=== PATIENT | female | born 1980 | race Caucasian/White ===

== ENCOUNTER 2021-07-19 23:11 | Emergency (ER) | payer BC ==
[2021-07-19] MEDS ORDERED: Cyclobenzaprine 10 MG Tab PO ONE (23:28)
[2021-07-19] MEDS ORDERED: Acetaminophen/HYDROcodone 325-10 MG Tab PO ONE (23:28)
--- NOTE | 2021-07-19 23:38 | EDM.PDOC ---
ED HPI GENERAL MEDICAL PROBLEM - General Chief Complaint: General Stated Complaint: Left back pain Time Seen by Provider: 07/19/21 23:28 Source of Information: Reports: Patient, Significant Other History Limitations: Reports: No Limitations - History of Present Illness INITIAL COMMENTS - FREE TEXT/NARRATIVE: Patient presents with low back pain on left that radiates down the pos terolateral left hip and thigh. No numbness, tingling, or weakness. This has been going on for at least a month but worse recently, says she can't stand it anymore. It is worse with sitting or lifting. Better with walking or lying flat. She has had chronic back pain in this area since a fall last winter. She had an injection a month ago that sounds like probably a trochanteric bursa injection. Patient says the pain is worse since then. She takes Diclofenac twice daily for chronic management. She is scheduled for MRI of back and hip next week. 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 Next shift is in two days. No recent injury. She asks if I will give her work release until MRI next week. Left Posterior Back Pain Score (Numeric/FACES): 10 - Related Data Allergies Allergy/AdvReac Type Severity Reaction Status Date / Time No Known Allergies Allergy Verified 07/19/21 23:23 ED ROS GENERAL - Review of Systems Review Of Systems: Comprehensive ROS is negative, except as noted in HPI. ED EXAM, GENERAL - Physical Exam Exam: See Below Exam Limited By: No Limitations General Appearance: Alert, WD/WN, No Apparent Distress Eye Exam: Bilateral Eye: EOMI, Normal Inspection, PERRL Ears: Normal External Exam, Hearing Grossly Normal Nose: Normal Inspection, No Blood Throat/Mouth: Normal Inspection, Normal Lips, Normal Voice, No Airway Compromise Head: Atraumatic, Normocephalic Neck: Normal Inspection, Full Range of Motion Respiratory/Chest: No Respiratory Distress, Lungs Clear, Normal Breath Sounds, No Accessory Muscle Use Cardiovascular: Regular Rate, Rhythm, No Edema, No Murmur GI/Abdominal: Normal Bowel Sounds, Soft, Non-Tender, No Organomegaly, No Distention Back Exam: Paraspinal Tenderness (left lumbar to SI region painful to palpation with spasm evident). No: CVA Tenderness (L), CVA Tenderness (R), Vertebral Tenderness Extremities: Normal Inspection, Normal Range of Motion (bilat straight leg raise normal without pain) Neurological: Alert, Oriented, Normal Cognition, No Motor/Sensory Deficits Psychiatric: Normal Affect, Normal Mood Skin Exam: Warm, Dry, Intact, Normal Color, No Rash Course - Vital Signs Last Recorded V/S: Last Vital Signs Temp 96.9 F 07/19/21 23:17 Pulse 94 07/19/21 23:17 Resp 24 H 07/19/21 23:17 BP 139/81 07/19/21 23:17 Pulse Ox 99 07/19/21 23:17 - Orders/Labs/Meds Orders: Active Orders 24 hr Category Date Time Status Acetaminophen/HYDROcodone [[place] 325-10 MG] Med 07/19/21 23:28 Once 4 tab PO ONETIME ONE Cyclobenzaprine [Flexeril] Med 07/19/21 23:28 Once 40 mg PO ONETIME ONE - Re-Assessments/Exams Free Text/Narrative Re-Assessment/Exam: 07/19/21 23:41 Discussed findings and treatment options. Will avoid toradol with her regimen of diclofenac. Will try cyclobenzaprine 10 mg and hydrocodone/apap 10/325 now and send 3 tabs of each home with her. She will see Alexandra Lane tomorrow and see if she can get the MRI this week and discuss work release until then. Discharged to home in stable condition. Departure - Departure Time of Disposition: 23:30 Disposition: Home, Self-Care 01 Condition: Good Clinical Impression: Low back pain Qualifiers: Chronicity: acute Back pain laterality: left Sciatica presence: with sciatica Sciatica laterality: sciatica of left side Qualified Code(s): M54.42 - Lumbago with sciatica, left side - Discharge Information Additional Instructions: Drink 8 cups of water daily. Take the hydrocodone and flexeril as directed. Follow up with your PCP tomorrow as we discussed. Sepsis Event Note (ED) - Evaluation Sepsis Screening Result: No Definite Risk - Focused Exam Vital Signs: Vital Signs Temp Pulse Resp BP Pulse Ox 07/19/21 23:17 96.9 F 94 24 H 139/81 99 - My Orders Last 24 Hours: My Active Orders 07/19/21 23:28 Acetaminophen/HYDROcodone [[place] 325-10 MG] 4 tab PO ONETIME ONE Cyclobenzaprine [Flexeril] 40 mg PO ONETIME ONE - Assessment/Plan Last 24 Hours: My Active Orders 07/19/21 23:28 Acetaminophen/HYDROcodone [[place] 325-10 MG] 4 tab PO ONETIME ONE Cyclobenzaprine [Flexeril] 40 mg PO ONETIME ONE
== END 2021-07-19 23:50 | disposition home or self-care (01) ==
LOC: KA.ED 23:11
DX: M54.42 Lumbago with sciatica, left side (principal)
CPT/HCPCS: 99283; A9270-GY